=== PATIENT | female | born 1985 | race American Indian/Alaskan Native ===

== ENCOUNTER 2019-01-11 00:24 | Outpatient (CLI) | payer OTHER ==
[2019-01-11] MEDS ORDERED: LACTATED RINGERS 1,000 ML IV ONE (01:23)
[2019-01-11] MEDS ORDERED: PROMETHAZINE 25 MG TAB ONE (02:09)
[2019-01-11] MEDS ORDERED: PROMETHAZINE 12.5 MG/10 ML ORAL LIQD PO ONE (02:10)
[2019-01-11] MEDS ORDERED: PROMETHAZINE 25 MG TAB PO ONE (02:26)
[2019-01-11 03:03] LABS: Bacteria,Urine 1+ /HPF (Negative); Bilirubin,Urine NEG (Negative); Blood,Urine NEG (Negative); Color,Urine Yellow (Yellow); Protein,Urine <15 mg/dL mg/dL (Negative); Urobilinogen,Urine < 2.0 mg/dL (<2.0)
== END 2019-01-11 01:00 | disposition home or self-care (01) ==
LOC: TRG 00:24
PROVIDERS: ATTEND Obstetrics & Gynecology
DX: O26.892 Other specified pregnancy related conditions, second trimester (principal); Z3A.20 20 weeks gestation of pregnancy
CPT/HCPCS: 81001; Q0169